=== PATIENT | male | born 1995 | race Caucasian/White ===

== ENCOUNTER 2021-06-21 11:27 | Outpatient (CLI) | payer OTHER, SELFPAY ==
--- NOTE | ~2021-06-21 | XR_ITS ---
EXAMINATION: XR foot RT 2V DATE: 06/21/2021 12:22 INDICATION: Arthralgia. TECHNIQUE: 2 views of right foot were obtained. COMPARISON: None. FINDINGS: Bone alignment is normal. No fracture. Joint spaces are well maintained. There is an enthes ophyte at plantar aspect of calcaneal tuberosity. IMPRESSION: 1. No arthritis. Reviewed, dictated and finalized at location A. IMPRESSION: 1. No arthritis.
--- NOTE | ~2021-06-21 | XR_ITS ---
EXAMINATION: XR hand RT 2V DATE: 06/21/2021 12:22 INDICATION: Arthralgia. TECHNIQUE: 2 views of right hand were obtained. COMPARISON: None. FINDINGS: Bone alignment is normal. No fracture. Joint spaces are well maintained. IMPRESSION: 1. Normal right hand. Reviewed, dictated and finalized at location A. IMPRESSION: 1. Normal right hand.
--- NOTE | ~2021-06-21 | XR_ITS ---
EXAMINATION: XR foot LT 2V DATE: 06/21/2021 12:22 INDICATION: Arthralgia. TECHNIQUE: 2 views of left foot were obtained. COMPARISON: None. FINDINGS: Bone alignment is normal. No fracture. Joint spaces are well maintained. There is an enthes ophyte at plantar aspect of calcaneal tuberosity. IMPRESSION: 1. No arthritis. Reviewed, dictated and finalized at location A. IMPRESSION: 1. No arthritis.
--- NOTE | ~2021-06-21 | XR_ITS ---
EXAMINATION: XR chest 2V DATE: 06/21/2021 12:22 INDICATION: Arthralgia. TECHNIQUE: Frontal and lateral views of the chest were obtained. COMPARISON: None. FINDINGS: There is mild scarring at the lung apices. No pleural effusion or pneumothorax. The heart s ize is normal. IMPRESSION: 1. Mild scarring at the lung apices. Reviewed, dictated and finalized at location A.
--- NOTE | ~2021-06-21 | XR_ITS ---
EXAMINATION: XR knee LT 3V DATE: 06/21/2021 12:22 INDICATION: Arthralgia. TECHNIQUE: 3 views of left knee were obtained. COMPARISON: None. FINDINGS: Bone alignment is normal. No fracture. Joint spaces are well maintained. There is no knee j oint effusion. IMPRESSION: 1. Normal left knee. Reviewed, dictated and finalized at location A. IMPRESSION: 1. Normal left knee.
--- NOTE | ~2021-06-21 | XR_ITS ---
EXAMINATION: XR hand LT 2V DATE: 06/21/2021 12:22 INDICATION: Arthralgia. TECHNIQUE: 2 views of left hand were obtained. COMPARISON: None. FINDINGS: Bone alignment is normal. No fracture. Joint spaces are well maintained. IMPRESSION: 1. Normal left hand. Reviewed, dictated and finalized at location A. IMPRESSION: 1. Normal left hand.
== END 2021-06-21 11:28 | disposition home or self-care (01) ==
LOC: ANHIMG 11:35
PROVIDERS: Visit Provider Physician Assistant
DX: M25.50 Pain in unspecified joint (principal); R91.8 Other nonspecific abnormal finding of lung field
CPT/HCPCS: 71046; 73120; 73562; 73620

== ENCOUNTER 2021-07-07 10:36 | Outpatient (CLI) | payer OTHER, SELFPAY ==
--- NOTE | ~2021-07-07 | XR_ITS ---
XR lumbar spine 2-3V DATE: 07/07/2021 11:00 INDICATION: Chronic bilateral lower back pain TECHNIQUE: AP, lateral, coned lateral lumbosacral views COMPARISON: None FINDINGS: No fracture or bone destruction or spondylolisthesis. The lumbar pedicles are intact. Lumba r and lumbosacral interspaces are well preserved. The sacroiliac joints are intact. IMPRESSION: Negative Reviewed, dictated and finalized at location A. IMPRESSION: Negative
--- NOTE | ~2021-07-07 | XR_ITS ---
XR sacroiliac joints min 3V DATE: 07/07/2021 11:00 INDICATION: Chronic bilateral low back pain TECHNIQUE: AP and bilateral oblique views COMPARISON: None FINDINGS: No fracture, dislocation, erosive change or ankylosis or degenerative changes noted at the sacroiliac joints. IMPRESSION: Negative Reviewed, dictated and finalized at Location A. Reviewed, dictated and finalized at location A. IMPRESSION: Negative
== END 2021-07-07 10:37 | disposition home or self-care (01) ==
LOC: ANHIMG 10:43
PROVIDERS: PCP Family Medicine; Visit Provider Internal Medicine Rheumatology
DX: M54.5 Low back pain (principal)
CPT/HCPCS: 72100; 72202

== ENCOUNTER 2023-02-06 00:49 | Day surgery (SDC) | payer OTHER, SELFPAY ==
[2023-01-24 15:12] VITALS: BMI 24.4
[2023-02-06 07:48] VITALS: BP 113/80; PULSE 82; RESP 18; TEMP 36.5; O2SAT 99; BMI 24.0
[2023-02-06] MEDS: LACTATED RINGERS 1,000 ML 150 ML IV CONT (08:00)
--- NOTE | 2023-02-06 08:15 | WPDHPUPDATE1 ---
History and Physical Update Update Date/Time: 02/06/23 08:15 History and Physical has been reviewed, including an updated exam of the patient. There are NO changes in the patient's condition. Risks, benefits, and alternatives have been discussed and questions answered. Patient agrees to proceed with procedure.
--- NOTE | 2023-02-06 09:01 | P.PNAN_ITS ---
Anes - Initial Pre Proc Eval Procedure: Operation Date: 02/06/23 09:00 Proposed Procedures p Esophagogastroduodenoscopy & Colonoscopy - Miguel Perez MD Date/Time: 02/06/23 09:01 Surgeon: Miguel Perez MD Pre Op Diagnosis: diarrhea, GERD, Abdominal Cramps Patient Data Age: 27 Gender: M Height: 1.88 m Weight: 84.8 kg Last Vital Signs Temp 97.7 F 02/06/23 07:48 Pulse 82 02/06/23 07:48 Resp 18 02/06/23 07:48 BP 113/80 02/06/23 07:48 Pulse Ox 99 02/06/23 07:48 O2 Del Method Room Air 02/06/23 07:48 Allergies Allergy/AdvReac Type Severity Reaction Status Date / Time No Known Allergies Allergy Verified 02/06/23 07:45 Home Medications Medication Instructions Recorded Confirmed Type ergocalciferol (vitamin D2) 1,250 1,250 mcg PO WEEKLY 01/24/23 02/06/23 History mcg (50,000 unit) capsule (Vitamin D2) levothyroxine 88 mcg tablet 88 mcg PO DAILY 01/24/23 02/06/23 History sertraline 100 mg tablet 150 mg PO DAILY 01/24/23 02/06/23 History Patient hx anesthesia problems: none Family hx anesthesia problems: none Results Review: All pre-operative results and documents have been reviewed as part of the pre- operative evaluation. [facility] Past Medical History Medical History (Updated 01/09/23 @ 15:38 by Patrizia Silver APRN) Bloating GERD (gastroesophageal reflux disease) Family History Family History (Updated 01/09/23 @ 15:15 by Amarilis Yeager MA) Mother Cancer Thyroid disorder Father Hypertension Social History Social History (Updated 01/09/23 @ 15:16 by Amarilis Yeager MA) Smoking status: Never smoker Alcohol intake: current Alcohol use details: occasional Substance use: never Substance use type: does not use Living arrangements: with roommate(s) Spiritual care concerns: No Anes - Eval Final PreProcedure Day of Procedure 02/06/23 09:01 Patient weight: normal Heart: regular rate and rhythm Lungs: clear to auscultation Airway: Mallampati scale class II Neurological: alert and oriented Last oral intake: >/= 8 hours ASA classification: II Emergent: no Anesthetic plan: proceed Anesthesia type and monitoring: general GIVS and standard monitoring Results Review: All pre-operative results and documents have been reviewed as part of the pre- operative evaluation. Informed Consent: The patient's anesthetic plan and its attendant risks and benefits were discussed with the patient/family/POA. Questions were solicited and answers pro vided to the satisfaction of the patient/family/POA.
--- NOTE | 2023-02-06 09:25 | SUR.OPER ---
EGD completed at 912, colonoscopy start time 920
[2023-02-06 09:40] VITALS: BP 129/74; PULSE 79; RESP 16; O2SAT 100
[2023-02-06 09:50] VITALS: BP 116/76; PULSE 63; RESP 20; O2SAT 100
[2023-02-06 10:00] VITALS: BP 115/76; PULSE 66; RESP 21; O2SAT 100
== END 2023-02-06 10:09 | disposition home or self-care (01) ==
PROVIDERS: PCP Family Medicine; Visit Provider Internal Medicine Gastroenterology
PROC: 0DJ08ZZ Inspection of Upper Intestinal Tract, Via Natural or Artificial Opening Endoscopic (ICD-10-PCS; CPT 43235; principal; 2023-02-06 09:00)
DX: R19.7 Diarrhea, unspecified (principal); D12.8 Benign neoplasm of rectum; R10.84 Generalized abdominal pain
CPT/HCPCS: 45385; 45380; 43239; 87081; 88305; J2704; J7120

== ENCOUNTER 2024-01-19 14:46 | Outpatient (CLI) | payer OTHER, SELFPAY ==
--- NOTE | ~2024-01-19 | US_ITS ---
EXAMINATION: US thyroid DATE: 01/19/2024 16:26 INDICATION: Anatoliy thyroiditis. Hypothyroidism. TECHNIQUE: Multiple ultrasound images of the thyroid were obtained. COMPARISON: None. FINDINGS: The right thyroid lobe measures 5.4 x 1.3 x 2.1 cm. The left thyroid lobe measures 5.8 x 1.8 x 2.2 c m. The thyroid is diffusely heterogeneous and hypoechoic with increased vascularity. In the right th yroid lobe, there is a 7 mm solid, hyperechoic, wider than tall nodule with lobulated margin without echogenic foci (TI-RADS TR4). IMPRESSION: 1. Heterogeneous, hypervascular thyroid, consistent with chronic lymphocytic (Anatoliy) thyroiditis. 2. Small thyroid nodule, likely not clinically significant. No follow-up is needed. Reviewed, dictated and finalized at location E. IMPRESSION: 1. Heterogeneous, hypervascular thyroid, consistent with chronic lymphocytic (H ashimoto) thyroiditis. 2. Small thyroid nodule, likely not clinically significant. No follow-up is nee ded.
== END 2024-01-19 14:47 | disposition home or self-care (01) ==
LOC: ANHIMG 14:50
PROVIDERS: PCP Family Medicine; Visit Provider Internal Medicine
DX: E03.9 Hypothyroidism, unspecified (principal)
CPT/HCPCS: 76536

== ENCOUNTER 2024-10-05 11:54 | Outpatient (CLI) | payer OTHER, SELFPAY ==
--- NOTE | ~2024-10-05 | US_ITS ---
EXAMINATION: US thyroid DATE: 10/05/2024 12:06 INDICATION: Multinodular goiter TECHNIQUE: Multiple ultrasound images of the thyroid were obtained. COMPARISON: 01/19/2024 FINDINGS: The right thyroid lobe measures 5.7 x 1.7 x 2.3 cm. The left thyroid lobe measures 6.1 x 1.9 x 1.9 c m. The isthmus measures 0.5 cm. Heterogeneous echogenicity throughout both lobes of the thyroid. 7 mm solid, hyperechoic, wider than tall nodule, with a mildly lobulated margin, without echogenic foci ( TI-RADS 4). Normal vascular flow is present. IMPRESSION: Heterogeneous thyroid as can be seen with Graves' disease and Anatoliy's thyroiditis. Small thyroid nodule, likely not clinically significant. No follow-up recommended at this time. Reviewed, dictated and finalized at location K. 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 Small thyroid nodule, likely not clinically significant. No follow-up recommend ed at this time.
== END 2024-10-05 11:55 | disposition home or self-care (01) ==
LOC: MICIMG 11:55
PROVIDERS: PCP Family Medicine; Visit Provider Internal Medicine
DX: E04.1 Nontoxic single thyroid nodule (principal)
CPT/HCPCS: 76536